=== PATIENT | female | born 1980 | race Caucasian/White ===

== ENCOUNTER 2019-12-31 08:32 | Emergency (ER) | payer MEDICAID ==
[~2019-12-31] VITALS: Ht 154.9 cm; Wt 57.6 kg
[2019-12-31 08:38] VITALS: BP 127/79
== END 2019-12-31 09:03 | disposition home or self-care (01) ==
LOC: ER 08:32
DX: R56.9 Unspecified convulsions (principal); Z76.0 Encounter for issue of repeat prescription